=== PATIENT | female | born 1955 | race Caucasian/White ===

== ENCOUNTER 2021-02-27 22:58 | Inpatient (IN) | payer OTHER, MEDICAID ==
[~2021-02-27] VITALS: Ht 167.6 cm; Wt 82.1 kg
[2021-02-27 23:10] VITALS: BP 86/64
[2021-02-28 04:48] VITALS: BP 109/63
--- NOTE | 2021-02-28 05:46 | NUR ---
Pt admitted to unit at 0515 this shift via w/c from ED. Pt calm et cooperative with procedure. Orders obtained from MAINFRAME SYSTEMS ADMINISTRATOR distribution analyst for admission et medications. Hospitalist MAINFRAME SYSTEMS ADMINISTRATOR distribution analyst notified of admission to unit along with diagnosis. Ambulation not observed but pt able to stand et transfer from w/c to bed without difficulty. Full ROM performed without difficulty. VSWNL. Brief health assessment performed without any abnormalities noted at present time. Pt signed all consent forms et fall contract. Pt given admission packet et educated on process of admission to unit as she is requesting Immodium be given for unobserved diarrhea. Perseverating on the medication even after being told by two nurses the current course of action needed prior to her being able to receive any medication. Currently resting in bed with eyes open. Will continue to monitor per unit protocol.
[2021-02-28 05:57] LABS: CHOLESTEROL 218 mg/dL (<200); HDL CHOLESTEROL 50 mg/dL (>40); TC:HDL 4.4 Ratio (Not establshd); TRIGLYCERIDE 534 mg/dL (<150); VLDL 107 mg/dL (<40)
[2021-02-28 05:59] LABS: SERUM ASSESSMENT Clear
[2021-02-28 06:26] VITALS: BP 116/85
[2021-02-28 09:34] VITALS: BP 77/61
[2021-02-28 10:17] VITALS: BP 132/74
--- NOTE | 2021-02-28 11:07 | NUR ---
02-28-2021--7949--Went to see new patient to gather information to complete the psychosocial assessment. Notes from Has state her children have guardianship over her but they are trying to get out of it. Patient has a hx of bipolar affective d/o but was admitted this time for unspecified psychosis, Patient reports she is on [place] and she has a hx of thyroid cancer. Patient has COPD but coontinus to smoke and vape. Patient reports she had "behaviors" at [facility] due to her frustration. "Not treating me like they should and not listening to me". Patient was born and raised in [place], [place]. She was the youngest and only girl. Had the opportunity to observe her anxious reactions to the quality assurance qa lab analyst who came im to take her blood. She made herself escalate even when he was only putting on the tourniqet. Her reactions to having blood drawn were very dramatized and exceeded what was happening to her.Patient recently moved into a low income housing apartment. She reports she pays only 120.00 a month. She lives on disability. She has a psychiatrist who prescribes her meds but she reports she doesn't have a therapist, or a senior case manager. 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 She states she uses the bus [employer] and it costs her only 2.00 a trip.
--- NOTE | 2021-02-28 12:16 | NUR ---
RESUMMMED CARE FROM OVERNIGHT SHIFT THIS AM, PATIENT IN ROOM YELLING OUT. I WENT TO PATIENTS ROOM AND ASKED HER TO NOT YELL OUT WE ARE DOING SHIFT CHANGE. I TOLD PATIENT I WILL BE IN TO ASSESS HER WHEN REPORT IS FINISHED. PATIENT ALERT RIENTED TIMES 3 PATIENT APOLOGIZED FOR YELLING AND BEING RUDE. PATIENT DENIES SI/HI/AH/VH AT PRESENT. PATIENT STATES HER ANXIETY IS A 8 AND DEPRESSION AN 8. LAB HAD DIFFICULTY TRYING TO GET BLOOD PATIENT STATES SHE WILL WAIT UNTIL TOMMOROW FOR LABS. PATIENT ENCOURAGE TO DRINL MORE WATER AND FLUIDS. PATIENTS ABDOMEN SOFT BOWEL SOUNDS PRESENT PATIENTS LUNGS CLEAR. I ASKED PATIENT TO COME OUT FOR GROUPS SHE STATES SHE IS SHY BE SHE DID ATTEND GROUPS. WILL CONTINUE TO MONITOR PATIENT FOR SAFETY AND BEHAVIORS.
--- NOTE | 2021-02-28 14:56 | NUR ---
02-28-2021--1400--Call to patient's daughter, Valentin Wynne ( ). Patient was very happy to talk to her. Patient got the number for her brother here in town. His name is Rupert and his phone number is ([phone]). Someone came to give patient a breathing treatment and she had to hang up the phone. When patient had gone for her breathing treatment I called her daughter back. Daughter stated "the mental health stuff started a few years ago." She stated her mother did a lot of drugs when they were kids. About five years ago she got an apartment in [place]. Daughter states she started calling 911 all the time. Daughter states patient was "overtaking" konrad. She went to a hospital in [facility] and then to [place]. At that point the kids became her guardian. She went to [place] to live in an AL facility. (It was very dirty and she stopped taking her meds). She got kicked out of the AL about one month ago. On February 15 she moved into an apartment that she got on her own. She had an doctor's appointment and was very rude and abusive to the nurses. They sent he to [facility] where her 02 Sat was in the 80's. She had behaviors at the hospital and she was sent here. (Had she not been sent here she would have DC'd back to her apartment with 02 and will likely have to have it when she returns to her residence). Daughter and son of the patient are afraid she shouldn't be living alone. They are also trying to get out of being the guardians because she "gets so upset and angry with them". I attempted to talk to her about her mother's anger and if they were doing the right thing for her they needed to accept the anger. Family meeting set up for 1300 on 03/01. I talked to patient after her breathong treatment was done about filling out a DPOA paper appointing her son, Elvis and daughter Valentin as agents. She was agreeable. I also asked her daughter to send us a copy of the guardianship papers and she said she would e-mail them to me. Administered the SLUMS and the score was 3/30. Patient was angry about not beoing able to have pop and having to drink water. (The microbiological lab technician was unable to take blood this AM when needed.)
[2021-02-28 18:30] LABS: ALBUMIN 3.1 g/dL (3.4-5.0); ANION GAP 9 mmol/L (7-16); BUN 28 mg/dL (7-18); CHLORIDE 105 mmol/L (98-107); CO2 22 mmol/L (21-32); CREATININE 0.9 mg/dL (0.6-1.0); DIRECT BILIRUBIN < 0.1 mg/dL (<0.1-0.2); GLUCOSE 134 mg/dL (74-106); POTASSIUM 4.8 mmol/L (3.5-5.1); SGOT 20 U/L (15-37); SGPT 22 U/L (14-59); SODIUM 136 mmol/L (136-145); TOTAL BILIRUBIN 0.3 mg/dL (0.2-1.0); TOTAL PROTEIN 6.7 g/dL (6.4-8.2)
[2021-02-28 19:40] VITALS: BP 81/48
[2021-02-28 19:54] VITALS: BP 81/48
--- NOTE | 2021-03-01 00:10 | NUR ---
02/28/21 @ 1900, seated on the couch in front of TV at start of shift. A&Ox2 oriented to self and knows that is in a hospital, cannot name hospital. HRRR, Lungs CTA but diminished. ABD is round and soft x4Q. Denies pain, reports Anxiety and Depression that she rates as a 8/10. Denies SI/HI and AH/VH. Refused to allow lab draw to be taken, having only allowed half of the lab tubes to be drawn. BM reported on 02/27. Retired to bed @ HS, bed in low position. Will continue to monitor for safety and comfort.
[2021-03-01 04:06] LABS: GLYCOHEMOGLOBIN (HGB A1C) 5.8 % (4.8-5.6)
[2021-03-01 05:38] LABS: BASOPHILS 0.5 % (0.0-2.0); EOSINOPHILS 3.7 % (0.0-3.0); LYMPHOCYTES 11.2 % (24.0-44.0); MCH 26.3 pg (26.0-34.0); MCHC 30.4 g/dL (28.0-37.0); MCV 86.4 fL (80.0-100.0); MONOCYTES 7.5 % (1.0-8.0); PLATELET COUNT 314 thou/uL (150-400); POLYS 77.1 % (36.0-66.0); RBC 4.17 mil/uL (4.20-5.00); RDW 15.7 % (10.5-14.5); WBC 14.3 thou/uL (4.0-11.0)
--- NOTE | 2021-03-01 07:23 | NUR ---
03-01-2021--9483--Patient was in the day room. I sat down across from her and asked how her night had been. She stated good and she reported she got to talk to her brother last night to let him know she was here. I inquired if she had thought any more about signing the DPOA paper. (I still have not received the guardianship paper work from her daughter.) Patient stated she didn't think it was nessary. "I'm only 65". I re-explained the positive aspects of having this paperwork and told her that if she changed her mind she could let me know.
--- NOTE | 2021-03-01 08:54 | NUR ---
03-01-2021--0855--Patient's daughter called me and stated the e-mail would not go through. I inquired if she had access to a fax machine and she stated yes, her could fax it from work. She also stated her brother wanted to be included in the family meeting this date and I told her that would be great we could do a three way call. Waitng for fax to come with guardianship paperwork.
--- NOTE | 2021-03-01 10:27 | NUR ---
Assess due to new admit to [facility]. No reported wt changes and appetite is 60-80% of meals, no diet restrictions. BMI 29.3. Chol 218 and triglycerides 534 significantly elevated and pt is on lipitor. Presents low nutrition risk
[2021-03-01 13:00] VITALS: BP 107/65
[2021-03-01 13:35] VITALS: BP 107/65
--- NOTE | 2021-03-01 14:19 | NUR ---
03-01-2021--1300--Family meeting scheduled this date with patient's guardians who are her children Elvis and Valentin. The doctor explained to the guardians how patient came to be here. They in turn explained what hey have dealt with re: patient's care. Patient came into my office towards the end of the call to talk to her children and they told her they thought she should go to a long-term. Patient was very angry and started blaming the doctor and myself. She attempted to make her kids feel guilty about her losing "my beautiful apartment" ([facility]--120.00 a month with all utilities paid as per patient report.) The doctor said he would be keeping her over the [place] holiday. (Observation: When patient becomes angry she has tunnel vision about what ever the problem is and cannot listen to reason or explanations and she starts hyperverbalizing re: what she "thinks" is the problem or enemy.) I will start looking for facilities around [place] or [place] where her children live.
--- NOTE | 2021-03-01 17:08 | NUR ---
Evie was alert and oriented to person, place, and situation but disoriented to time; she knew that it was February but did not know the year. She initially presented as anxious, restless, and demanding this morning and was noted often talking to herself in her room but once this RN spoke to pt and offered emotional support and she felt as though her needs were being met, pt was able to calm down. She expressed, "I know I'm a difficult person to deal with and I wish I wasn't that way". She was medication compliant, without difficulty, and remained out of her room, in the dayroom for the majority of the shift. She participated in groups and appeared calm and cooperative throughout the day. Although, this afternoon pt had an episode where she was very upset after meeting with SW and being informed that she would be placed in a facility. She was noted by this RN raising her voice to SW and Dr. Lopez, she was redirected to her room where this RN allowed her to voice her frustrations and at the end of the conversation she voiced optimism regarding placement despite her disappointment as she expressed "I really loved that apartment and considered myself gus". 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 She recieved a dose this morning and Dr. Lopez adjusted the frequency so pt may receive q4 hours PRN. Pt received a second dose at lunch per pt request. Pt denied other physicla symptoms this shift but did endorse anxiety and recieved xanax PRN twice this shift per MAY, with effectiveness. Pt denied SI/HI/MCKAY this shift but did endorse "feeling depressed". Pt is currently sitting clamly watching TV in the dayroom; will continue to monitor.
[2021-03-01 19:40] VITALS: BP 119/45
--- NOTE | 2021-03-01 20:04 | NUR ---
03/01/21 1900, IN THE DAY ROOM UNSTEADY GAIT, BUT REFUSES TO USE WALKER. HRRR, LUNGS CTA, ABD N X 4Q. ASKS FOR VANDANAX, REMINDED THAT SHE WILL NOT BE ABLE TO TAKE IT UNTIL 0200, ACKNOWLEDGES REMEMBERING THIS TIME FRAME. HRRR, LUNGS CTA BUT DIMINISHED, ABD N X 4Q.
[2021-03-01 20:20] VITALS: BP 119/45
--- NOTE | 2021-03-02 08:52 | NUR ---
03-02-2021--2956--Called facilities to get fax numbers. Faxed referral packet to: [facility] (patient requested) [facility]--[facility]--[facility] Will check on referrals later this afternoon
[2021-03-02 10:36] VITALS: BP 110/52
--- NOTE | 2021-03-02 12:51 | NUR ---
Alert and orientated X4. Upset about conversation she overheard at nursing station by shop firer/fireman and physician discussion symptoms. Calmed down after talking with her. States she has a headache 8/ and is anxious 8/10. Resolved with Zanax and tylenol. Denies SI/HI. Breath sounds clear. Reg HR auscultated. Color pink with brisk capillary refill and palpable peripheral pulses. Yellow urine and moderate stool per toilet. Active bowel sounds over soft, rounded abdomen. Ambulates with abnormal but steady gait. Participating in groups and interacting with peers.
[2021-03-02 19:30] VITALS: BP 98/61
[2021-03-02 20:15] VITALS: BP 98/61
--- NOTE | 2021-03-02 21:50 | NUR ---
ASSUMED CARE 03/02/21 @ 1900, IN THE DAY ROOM, SEATED ON THE COUCH, WATCHING TV AND INTERACTING APROPRIATELY WITH FEMALE PEERS. DENIES SI/HI RATES ANXIETY 4/10, DEPRESSION AT 3/10 AND DENIES HALLUCINATIONS. A&OX3 CANNOT REPORT HOSPITAL NAME, IS ABLE TO NAME THE PRESIDENT AND DATE. REQUESTS RACHEL, PROVIDED WITH HS MEDS. CALM AND COOPERATIVE WITH CARE. MOOD STABLE AND RETIRED TO BED @ HS. WILL CONTINUE TO MONITOR FOR SAFETY AND COMFORT PER UNIT PROTOCOL.
--- NOTE | 2021-03-03 10:55 | NUR ---
03-03-2021--1045--Call to [facility] in the [place] area that I sent referrals to: [facility]--yelena call me back tomorrow [facility]--No--waiting list of 20 people [facility]--Left messsage with admissions to call me back [facility]--No female beds Will start calling and sending referral packets to other [facility] around [place]
[2021-03-03 11:00] VITALS: BP 110/54
--- NOTE | 2021-03-03 11:54 | NUR ---
03-03-2021--6278--Attended team meeting for patient this date. Patiednt has been verbally and physically agressive and threatenng to staff. Attempting to find a placement for patient. (See note for earlier this AM).
--- NOTE | 2021-03-03 12:53 | NUR ---
03-03-2021--1245--Call from [facility] stating they were on hold for any admissions due to not enough staff. She stayted they have a pretty long waiting list and they could put her on it. This is not a good option at this time. Printed out lists for medicaid homes around [place], and in [facility]. Will begin calling for fax numbers.
--- NOTE | 2021-03-03 13:36 | NUR ---
PATIENT HAS BEEN UP, AND OUT ON THE UNIT, AMBULATE WITH SLOW STEADY GAIT. PATIENT TOOK ALL MEDICATION WHOLE WITHOUT DIFFICULTY, SHE IS EATING MEALS, AND DRINKING FLUID WELL. PATIENT PARTICIPATING IN GROUP THERAPY. PATIENT DENIES SUICIDAL/HOMICIDAL IDEATION, RATES DEPRESSION 08/20, ANXIETY 11/20, DENIES HAVING PHYSICAL PAIN. PATIENT WAS VERY ANXIOUS THIS MORNING WANTING HAVE HER XANAX, SAME GIVEN, WITH POSITIVE EFFECT. AFFECT IS ANXIOUS, MOOD DEPRESSED. NO SIGN OF ACUTE DISTRESS NOTED AT THIS TIME, WILL MOITOR FOR SAFETY.
[2021-03-03 19:18] VITALS: BP 133/76
[2021-03-03 19:40] VITALS: BP 133/76
--- NOTE | 2021-03-04 03:42 | NUR ---
PATIENT CARE WAS RESUMED AT 1900. SHE IS ALERT AND ORIENTED. ABLE TO VERBALIZE HER NEEDS, SHE AMBULATES AND SHE IS CONTINENT OF BOWEL AND BLADDER.SHE WAS RESQUESTING FOR HER XANAX AND WAS VERY ANXIOUS AT THE TIME. SHE DENIES ANY SI/VH/HI BUT C/O PAINS TO SHOULDERS.PRN TYLENOL GIVEN WITH SOME GOOD EFFECT.SHE TOOK HER MEDS WHOLE.SHE CONTINUES TO GO TO OTHER NURSES ASKING FOR XANAX. LUNGS ARE CLEAR BS ACTIVE X4 QUADS. BED IS LOW AND LOCKED.STAFF PROVIDED A STANDBY ASSIST WITH TRANSFER AND TOILETING.
[2021-03-04 10:45] VITALS: BP 123/81
--- NOTE | 2021-03-04 16:25 | NUR ---
Alert and orientated X3. Calm and cooperative, compliant with meds. Denies SI/HI. Requesting loperamide and tylenol, given with good results. Breath sounds clear. Reg HR auscultated. Color pink with brisk capillary refill and palpable peripheral pulses. Independent with voiding. Smear of brown stool on brief. Active bowel sounds over large abdomen. Ambulates with irregular, unsteady gait. Currently resting in day room without s/o distress.
[2021-03-04 19:26] VITALS: BP 132/74
[2021-03-04 19:45] VITALS: BP 132/74
--- NOTE | 2021-03-05 02:45 | NUR ---
PATIENT CARE WAS RESUMED AT 1900. SHE WAS RELAXING ON THE COUCH AND SOCIALIZING WITH OTHER PATINETS. SHE IS ALERT AND ORIENT, LUNGS ARE CLEAR, BS ACTIVE X4 QUADS. SHE AMBULATES AND VERBALISES HER NEEDS. TOOK HER MEDS WHOLE. SHE WANT SEROQUEL FOR AGGITATION AND SHE IS CONTINENT OF BOWEL AND BLADDER.BREATHING TREATMENT WAS GIVEN AND SHE DENIES AVH/SI/HI. BED IS LOW AND LOCKED.
[2021-03-05 09:41] VITALS: BP 106/77
--- NOTE | 2021-03-05 17:14 | NUR ---
Needy this AM crying out for help with putting on her brief and pants. Alert and orientated X 3. Denies SI/HI. Requesting tylenol for MCKAY and quetiapine for anxiety with good results. Breath sounds clear. Reg HR auscultated. Color pink with brisk capillary refill and palpable peripheral pulses. Active bowel sounds over large, rounded firm abdomen. Independent with voiding, yellow urine per toilet. Ambulates with irregular, steady gait. Currently eating dinner with peers without s/o distress.
[2021-03-05 19:16] VITALS: BP 149/124
--- NOTE | 2021-03-06 04:27 | NUR ---
03-05-21 CARE TRANSFERRED 1899 OBSERVED PT SITTING IN DAY ROOM ON COUCH. PT AAOX4, VSS, RR EVEN AND NONLABORED ON RA; LUNGS CLEAR/DIMINISHED, HT RR, ABD SOFT AND ACTIVE. PT DENIES SI/HI AND PAIN. PT HAS UE TREMORS, PRESENTS ANXIOUS AND RESTLESS. PT NEEDY OFTEN ASKING FOR THE SAME QUESTION MULTI TIMES, THEN BECOMING ANGRY IF NOT GETTING WHAT SHE WANTS. LATER OBSERVED PT HAVING DIFFICULTIES GETTING HER BRIEF AND PANTS ON. ASSISTANCE GIVEN, WITH TECHNIQUE TO HELP WITH ADL'S. PT ACKNOWLEDGED EDUCATION WITH UNDERSTANDING AND DEMSTRATION WITH PANTS. PT WILL CONTINUE TO BE MONITOR PER [facility] PROTOCOL.
[2021-03-06 09:09] VITALS: BP 142/93
[2021-03-06 10:23] VITALS: BP 142/93
--- NOTE | 2021-03-06 11:38 | NUR ---
RESUMMED CARE FROM OVERNIGHT SHIFT THIS AM, PATIENT ALERT ORIENTED TIMES 4. PATIENT DENIES SI/HI/AH/VH AT PRESENT, PATIENT ATE BREAKFAST TOOK MEDICATION WITHOUT INCIDENCE. PATIENT DENIES DEPRESSION PATIENT STATES HER ANXIETY IS A 7, PATIENT GIVEN SEROQUEL 50 MG AT 11:00. PATIENTS ABDOMEN SOFT BOWEL SOUNDS PRESENT. PATIENTS LUNGS CLEAR PATIENT PARTICIPATED IN ALL GROUPS. WILL CONTINUE TO MONITOR PATIENT FOR SAFETY AND BEHAVIORS.
[2021-03-06 19:05] VITALS: BP 118/85
[2021-03-06 20:20] VITALS: BP 118/85
--- NOTE | 2021-03-07 04:43 | NUR ---
PATIENT WITH C/0 HEADACHE. TYLENOL 650MG PO GIVEN TO PATIENT BY JEREMIAS BELLE. PATIENT WENT TO LAY BACK DOWN ON COUCH IN DINING ROOM AND IS SLEEPING AT THIS TIME.
[2021-03-07 09:38] VITALS: BP 134/68
[2021-03-07 10:22] VITALS: BP 134/68
--- NOTE | 2021-03-07 15:37 | NUR ---
Evie was alert and oriented x4 this shift. She presented as anxious but was calm and cooperative with staff. She was able to express her needs calmly and appropriately this shift. She appeared SOB at times but lung sounds were clear/diminished. She voiced c/o of a MCKAY and received PRN tylenol with effectiveness. She participated in groups and remained in the dayroom throughout the day. She was social with peers and medication compliant without difficulty. Pt denied SI/HI/MCKAY. Will continue to monitor.
[2021-03-07 19:04] VITALS: BP 138/81
[2021-03-07 19:45] VITALS: BP 138/81
--- NOTE | 2021-03-08 03:21 | NUR ---
PATIENT CARE WAS RESUMED AT 1900. SHE WAS IN THE DININIG AREA SITTING ON THE COUCH WITH OTHER PATIENT IS CALM AND COOPERATIVE WITH CARE. SHE IS CONTININET OF BOWEL AND BLADDER. DENIED SI/AVH/HI. C/O GENERALIZED PAINS AND REQUESTED FOR PRN SEROQUEL FOR ANXIETY. MEDS ARE GIVEN WITH GOOD EFFECT AND SHE SWALLOWED MEDS WHOLE. BS ACTIVE X4 QUAD, ABD SOFT AND NONOE TENDER. SHE AMBLATES AND ABLE TO VERBALIZE HER PAINS. BED IS LOW, LOCKED AND ALARMED.Q12 MINUTES CHECKS ONGOING, CONTINUE CARE
--- NOTE | 2021-03-08 08:14 | NUR ---
03-08-2021--0800--Fax4ed [id number] packet to: [facility] Will attempt calls to these facilities this afternoon.
--- NOTE | 2021-03-08 08:16 | NUR ---
Nutrition follow up: Pt noted stable with variable po intakes that avg 75% across all meals. Weight stable. On mirtazapine, statin, protonix. No new labs to assess. Regular diet with no c/o chewing/swallowing issues at this time. Remains low nutrition risk.
[2021-03-08 09:12] VITALS: BP 131/69; BP 134/68
[2021-03-08 10:30] VITALS: BP 131/69
--- NOTE | 2021-03-08 12:06 | NUR ---
03-08-2021--0945--Treatment team attended his date for patient. Sent out additional referral paclkets thi date. See list in last SW note. DC to a usp or her past home. Doctor and I will do a family meeing today.
--- NOTE | 2021-03-08 14:54 | NUR ---
Evie was alert and oriented x4 this shift. She presents as anxious with slight tremors which is not abnormal for pt. She expressed that her mood is "medium" and rated her anxiety 10/10 and depression 8/10; 10 being the worst. She denied SI/HI/MCKAY and remained safe while on the unit. She was in the dayroom for the majority of the shift, participated in groups, and was social with peers. She was medication and meal compliant without difficulty. She received tylenol for c/o a MCKAY and seroquel PRN for c/o anxiety. Pt's scheduled zyprexa was D/C'd and pt changed to seroquel 50mg TID, first dose given this afternoon. Pt did not voice any other physical complaints this shift; will continue to monitor.
[2021-03-08 20:07] VITALS: BP 137/83
[2021-03-08 22:46] VITALS: BP 137/83
--- NOTE | 2021-03-09 02:48 | NUR ---
PATIENT CARE WAS RESUMED AT 1900. SHE IS AWAKE SITTING ON THE COUCH IN THE DININIG ROOM. SHE IS ABLE TO VERBALISE HER NEEDS. SHE ASKED THE NURSE TO GIVE HER SCHEDULED MEDICATION IMMEDIATELY.SHE DENIES ANY SI/AVH/HI. SHE IS CONTINENT OF BOWEL AND BLADDER. LUNGS ARE DIMINISHED AT THE BASES. SHE AMBULATES. [id number] CHECHES ARE ONGOING. BED IS LOW AND LOCKED. CONTINUE CARE
--- NOTE | 2021-03-09 11:52 | NUR ---
Alert and orientated X4. Fixated on meds wanting multiple PRNs. Expressing sadness that 4 peers are discharging today. Toenails and fingernails clipped per her request. Denies SI/HI. Fine tremor present. Ambulates with slow, steady, irregular gait. Breath sounds clear. Reg HR auscultated. Color pink with brisk capillary refill and palpable peripheral pulses. Independent with voiding. Requesting Imodium for "diarrhea". When assessed, stool was small amts brown formed stool. Education provided. Active bowel sounds over large, firm abdomen. Currently eating lunch with peers.
[2021-03-09 13:09] VITALS: BP 112/60
[2021-03-09 19:16] VITALS: BP 112/64
[2021-03-09 19:45] VITALS: BP 112/64
--- NOTE | 2021-03-10 03:26 | NUR ---
PATIENT CARE WAS RESUMED AT 1900. SHE IS ALERT AND ORIENTED AND SHE AMBULATES. ABLE TO VERBALIZE SOME PAINS. LUNGS ARE CLEAR BS ACTIVE X4 QUADS. SHE FELL FROM THE PREVIOUS SHIFT AND SHE DENIED ANY PAINS FROM [facility] BUT REQUESTED FOR TYLENOL FOR PAIN. NURSE GAVE IBUPROFEN TYLENOL COULD NOT BE GIVEN AT THIS TIME DUE TO CLOSENESS TO PREVIOUS ADMINSTRATION.SHE IS CONTINENT OF BOWEL AND BLADDER. SHE TOOK HER MEDS WHOLE AND CONTINUES TO ASK FOR WHEN HER NEXT PAIN MED IS DUE.PATIENT CONTINUES TO SLEEP ON THE COUCH AND REFUSING TO GO BED IN HER ROOM WANTING TO GET TYLENOL FOR A BARGAIN TO GO TO BED. SHE FINALLY WENT TO BED AND SLEPT THROUGH TILL THIS TIME.SHE HAD HER BREATHING TREATMENT AND NO SOA NOTED. BED IS LOW, LOCKED, ALARMED AND SHE WEARS A NONE SKID SOCKS. [id number] CHECKS ONGOING , CONTINUE CARE SOCKS. [id number] ROUNDS ARE ONGOING CONTINUE CARE
[2021-03-10 08:43] VITALS: BP 135/57
--- NOTE | 2021-03-10 10:43 | NUR ---
PATIENT HAS BEEN UP, AND OUT ON THE UNIT, PARTICIPATES IN GROUP THERAPY. PATIENT AMBULATE WITH SLIGHTLY UNSTEADY GAIT. PATIENT TOOK ALL MEDICATION WHOLE WITOUT DIFFICULTY. SHE IS EATING MEALS,AND DRINKING FLUID WELL. PATIENT DENIES SUICIDAL/HOMICIDAL IDEATION, SHE RATES DEPRESSION 4/10, FOR ANXIETY, SHE STATES "I HAVE ANXIETY ALL THE TIME". PATIENT RATES GENERALIZED PAIN 4/10, PRN IBUPROFEN GIVEN WITH PARTIAL EFFECT. PATIENT HAS BEEN CALM, COOPERATIVE WITH CARE. PATIENT ENCOURAGED TO BE CAREFUL WITH AMBULATION. FINE TREMORS NOTED TO MICH UPPER ARM. AFFECT IS ANXIOUS, MOOD IS CALM/EUTHYMIC. NO SIGN OF ACUTE DISTRESS NOED AT THIS TIME, WILL MONITOR FOR SAFETY.
--- NOTE | 2021-03-10 12:08 | NUR ---
03-10-2021--8321--Call to patient's daughter to advise her we may have found a NH in [place]. She is okay with this. She needs us to call her back at 1500 so her brother can also be on the phone. Call to [facility] where they gave me a new number as they don't take medicaid. This is a [facility] facility in [facility] and admissions ([facility]) is waiting for info to be faxed. Faxed info. Will call them back in 20 minutes.
--- NOTE | 2021-03-10 12:29 | NUR ---
03-10-2021--1230--Call to [facility] to [facility] to deterone of they would accept the patient. Not in. Message left for Priscilla to call me back. ([facility]iscilla's number is [phone] and [facility] fax is [phone]).
--- NOTE | 2021-03-10 12:32 | NUR ---
03-10-2021--6935--Attended team meeting for patient this date. Still looking for a placement.
[2021-03-10 19:32] VITALS: BP 106/56
[2021-03-10 20:50] VITALS: BP 106/56
--- NOTE | 2021-03-11 05:13 | NUR ---
PATIENT CARE WAS RESUMED AT 1900. SHE IS AWAKE SITTING IN THE COUCH AT THE DININIG AREA. SHE AMBUALATES, CONTINIET OF BOEWL AND BLADDER.ABLE TO VERBALIZE NEEDS. SHE IS COMPLAINED OF NOT HAVING TELEVISION IN HER ROOM TO INDUCE HER SLEEP. SHE TOOK HER MEDS WHOLE AND PRN PAIN MED WAS GIVEN PER ORDER WITH SOME GOOG EFFECT. PATIENT WANT TO SLEEP ON THE COUCH AND SHE CONTINUES TO ASK WHAN HER NEXT PAIN MED IS DUE. PATIENT WENT TO BED AND SHE SLEPT GOOD.BED IS LOW, LOCKED,AND LARMED. YELLOW TOP AND SOCKS ARE ON. SHE DENIES ANY CONCERN. CONTINUE TO MONITOR
--- NOTE | 2021-03-11 08:15 | NUR ---
03-11-2021--4384--Call to Priscilla at [facility] ([phone]) to determine if they had accepted or denied patient. Not in message left with my phone number for return call.
--- NOTE | 2021-03-11 08:52 | NUR ---
03-11-2021--799--Call to [facility] to determine if they accepted or denied. [facility] contacted: [facility]--denied [facility]--waiting for a call back--message left [facility]--denied [facility]--waiting on a call back message left [facility]--called, not in--will call back [facility]--Admissions--Jd Chandler--notin--msg left to call back Srhuthi Chowdhury--didn't receive--resent today [facility]--Called--transferred to nursing--msg left [facility]--msg left to call back Grecia Morales ([facility]) will look at and call back [facility]--No answer [facility]--no answer
--- NOTE | 2021-03-11 09:00 | NUR ---
03-11-2021--09--Virgilio guillen--private pay [facility]--declined [facility]--([phone]) will call back Funmi--denied Will attempt call back on 03-13-2021
[2021-03-11 09:04] VITALS: BP 106/74
[2021-03-11 10:08] VITALS: BP 106/74
--- NOTE | 2021-03-11 12:06 | NUR ---
Patient care resummed; patient up and in dayroom relaxing; A&O*4; Lung sounds clear, unlabored, diminished; Abdomen soft, nondistended with bowel sounds present*4; Denies SI/HI/AVH; Pain to the back area, states from fall she had 2 days ago; managed with PRN Tylenol; V/S present Hypotensive although trend to patient baseline; O2 at 90% this morning-patient denies SOB; Patient states she has had *3BM of loose stool today; Medication given; Fall precautions are in place; Medication/Meal compliant; Will continue to monitior for safety and behaviors;
--- NOTE | 2021-03-11 14:26 | NUR ---
[facility] Ign[facility] declined Pt
[2021-03-11 18:04] LABS: URINE BILIRUBIN NEGATIVE (Negative); URINE BLOOD TRACE (Negative); URINE CLARITY CLEAR; URINE COLOR YELLOW; URINE GLUCOSE-RANDOM* NEGATIVE (Negative); URINE KETONES NEGATIVE (Negative); URINE LEUKOCYTES-REFLEX NEGATIVE (Negative); URINE NITRITE-REFLEX NEGATIVE (Negative); URINE PROTEIN (DIPSTICK) NEGATIVE (Negative); URINE SPECIFIC GRAVITY 1.015 (1.005-1.035); URINE UROBILINOGEN 0.2 E.U./dl (0.2-1.0)
[2021-03-11 19:20] VITALS: BP 109/75
[2021-03-11 19:27] VITALS: BP 109/75
--- NOTE | 2021-03-12 05:18 | NUR ---
PATIENT CARE WAS RESUMED AT 1900. SHE WAS SITTING IN THE DINING AREA. SHE IS ALERT AND ORIENTED. LUNGS ARE CLEAR, BS ACTIVE X4 QUADS. SHE IS CONTININET OF BOWEL AND BLADDER. SHE AMBULATES AND ABLE TO VERBALIZE NEEDS. SHE IS ON FALL PRECAUTION. YELLOW TOP AND SOCKS ON. SHE TOOK HER MEDS WHOLE. BED IS LOW, LOCKED AND ALARMED. Q12 MINTES CHECKS ONGOING, CONTINUE CARE
[2021-03-12 07:52] LABS: ABSOLUTE NEUTROPHILS 5.2 thou/uL (1.4-8.2); EOSINOPHILS 6.7 % (0.0-3.0); HEMATOCRIT 33.8 % (37.0-47.0); HEMOGLOBIN 10.4 gm/dL (12.0-15.0); MCH 26.2 pg (26.0-34.0); MCHC 30.8 g/dL (28.0-37.0); MCV 85.2 fL (80.0-100.0); MONOCYTES 7.2 % (1.0-8.0); PLATELET COUNT 327 thou/uL (150-400); POLYS 73.1 % (36.0-66.0); RBC 3.96 mil/uL (4.20-5.00); RDW 16.3 % (10.5-14.5); WBC 7.2 thou/uL (4.0-11.0)
[2021-03-12 08:10] LABS: CALCIUM 9.5 mg/dL (8.5-10.1); CREATININE 0.9 mg/dL (0.6-1.0); POTASSIUM 4.4 mmol/L (3.5-5.1)
[2021-03-12 09:25] VITALS: BP 131/69
[2021-03-12 11:14] VITALS: BP 131/69
--- NOTE | 2021-03-12 15:45 | NUR ---
Patient care resummed; patient located up in the dayroom, sitting on the ice hockey coach watching TV; Denies SI/HI/AVH; States shes is depressed because she has not been able to meet her new grandson yet; Says she has some anxiety about how much longer she will be here; Patient reports pain in her shoulder area/upper back this morning as a 6/10; ORDNANCE HANDLER offered Ibprofen and pt. stated it doesn't work and she wanted Tylenol; ORDNANCE HANDLER informed patient she just had it at 0600 and that she had to wait untill noon for the next dose; Patient would continue to approach nurses station every hour asking "I need more Tylenol;" Patient was given the next dose at 1200 of 650mg; patient was then later was given scheduled 1400 medications and ORDNANCE HANDLER asked again how her pain was; Patient stated "I feel great, that Tylenol really helped me." After ORDNANCE HANDLER walked away to assess another patient, this patient went to another nurse stating "I am in so much pain, I need my Tylenol." ORDNANCE HANDLER overheared situation and informed Fellow Nurse she recieved 650mg at 1200 & a new order was placed for 1,000mg 3 times daily; which was due @1500; ORDNANCE HANDLER did not feel comfortable giving due to doses not being q6hrs apart; ORDNANCE HANDLER was informed by fellow nurse and Charge nurse to given the 1,000mg dose; Patient then stated to nurse that "I have to have it, my body won't work without it." Will continue to monitior; Fall precautions in place;
[2021-03-12 19:35] VITALS: BP 134/111
[2021-03-12 19:54] VITALS: BP 134/111
--- NOTE | 2021-03-12 20:13 | NUR ---
Assumed care on 03/12/21 @ 1900, VSS, HRRR, Lung sounds CTA bilat, ABD N x 4Q. Reports bm today with diarrhea quality. Denies SI/HI depression and anxiety. Reports wants flexaril and tylenol. Will continue to monitor for safety and comfort as per unit protocol.
--- NOTE | 2021-03-13 08:13 | NUR ---
03-13-2021--7455--Briefly spoke to client and esplained I would call some Nursing homes that I sent packets to and determined if they had read them. I also explained this being New Year's Day, many people will be off. I told her I would try them again next Monday.
[2021-03-13 08:55] VITALS: BP 109/55
[2021-03-13 09:10] VITALS: BP 109/55
--- NOTE | 2021-03-13 17:46 | NUR ---
Focused on calling children, angry that she was asked to do assessment. Resistant to parts of assessment, calling names and using profanity. Apologized for behavior about an hour later. Alert to name and place. Denies SI/HI. Breath sounds clear. Reg HR auscultated. Color pink with brisk capillary refill and palpable peripheral pulses. Independent with voiding. Active bowel sounds over large, rounded, firm abdomen. States last BM was yesterday. Currently in day room with peers. Primary nursing care done by Faith Summers LPN.
--- NOTE | 2021-03-13 23:09 | NUR ---
At onset of outboard motor inspector pt was sitting in day room watching TV and socializing with peers. This shift pt was up ad nadira, alert and oriented x3, with broad affect. Pt was compliant with vital signs and medications. Pt was mostly calm, pleasant and cooperative. Pt was irritable with a female peer for not wearing a mask, but was otherwise calm. Pt denied SI, HI and AVH. Pt stated she had a little anxiety. Fall precautions are in place. Will continue to monitor.
[2021-03-14 08:26] VITALS: BP 114/100
[2021-03-14 08:53] VITALS: BP 114/100
--- NOTE | 2021-03-14 14:33 | NUR ---
03-14-2021--1400--Faxed additonal packets to more facilities in [facility] [place]: [place]; [facility] [place]/[facility] [place] [facility] I will call tomorrow 03-15-2021 to make sure fax got through and if any accepted or declined.
--- NOTE | 2021-03-14 18:03 | NUR ---
Assumed pt care this morning from overnight shift. Pt was in activity area on couch resting. Pt presented calm and was oriented 4x. Client expressed that she was anxious to go home and that she wanted to spend time with her family. Client denied any depression at this time. Client also denied any hallucinations. Client denied any suicidal or homicidal ideation as well. Client did voice upper back pain 7/10 during this time. Scheduled tylenol given to help with this. Client asked when her flexaril would be given, and was reminded that it was scheduled for 12 pm on this shift, and for 2100 on night stocker. Client was also reminded of the next time she could take her scheduled tylenol as she frequently asks about this. Lung sounds were clear at this time though slightly diminished. Bowel sounds present. Last BM 03/14/21. No further concerns at this time.
[2021-03-14 19:49] VITALS: BP 103/91
--- NOTE | 2021-03-14 20:06 | NUR ---
Assumed care on 03/14/21 @ 1900, seated in the day room, ambulating back and forth to bedroom without device. HRRR, Lungs CTA, ABD N x 4Q. Reprots anxiety is thru the roof, reports is leaving and wants to stay in her apt, but denies knowing where she will be discharged to. Reports depression is improving. Deniesw si/hi.
[2021-03-14 20:17] VITALS: BP 103/91
[2021-03-15 08:40] VITALS: BP 129/61
[2021-03-15 08:54] VITALS: BP 103/80
--- NOTE | 2021-03-15 10:35 | NUR ---
Nutrition followup: pt remains on [facility] unit with dementia, bipolar, anxiety. Staff assists pt in ordering meals according to food preferences but does not always eat well. Pt confirms she has had reduced appetite lately. Continue to encourage ordering meals as desired, no specific food preferences voiced to RD other than she likes hamburgers which are on menu today. Average intake past 12 meals is 62%. No new weight since 03/04, Requested from ns. Prior weights stable. Pt already on mirtazapine. Pt agrees to trial one ensure daily, will offer at lunch. Continue as low nutrition risk for now.
--- NOTE | 2021-03-15 17:38 | NUR ---
Assumed pt care this morning from overnight shift. Pt was in activity area sitting in couch at this time, and presented restless. Pt was excited to be leaving to go home today and wanted to talk to grandchildren and children. Pt presented oriented 4x at this time. Pt denied depression and anxiety during this conversation, and denied any hallucinations as well. PT also denied any suicidal or homicidal ideation during this time. Pt stated moderated back pain for which she was given tylenol. Lung sounds were clear and diminished and bowel sounds were present. Last BM 03/15/21. Later during the day, client was told that she could not discharge today. Client became agitated, and was crying hysterically, stating that she would hit staff, and waving arms, shaking legs, and rocking back and forth. Client stated that she wanted an inventory of all of her things, and stated that staff had stolen from her, and stated that she would argue with staff and hit staff until they "brought back her things." Client yelled "you all are good for nothing" and continued to scream. PRN olanzapine was given at this time for agitation. No hold needed as client accepted injection. Client is currently sleeping on couch in activity area. No further concerns.
[2021-03-15 20:10] VITALS: BP 129/61
[2021-03-15 20:28] VITALS: BP 129/61
--- NOTE | 2021-03-16 02:34 | NUR ---
PATIENT WAS SLEEPING ON COUCH IN DINING ROOM WHEN I ARRIVED FOR SHIFT. SHE REFUSED HER RESPIRATORY TREATMENT AT 1900 AND WOULD NOT AWAKE FOR ASSESSMENT. SHE PUSHED ME AWAY I LISTENED TO HE LUNGS SHE SLEPT. SHE AWOKE AROUND 2100 AND WAS MAD THAT WE LET HER SLEEP SO MUCH. SHE DENIED PAIN BUT WANTED SLEEP MEDS. SHE HAD A LATE SNACK SINCE SHE WAS SLEEPING EARLIER. SHE GOT UPSET AND ANGRY WHEN SHE WAS TOLD THE TV IS TURNED OFF AT 2200 AND SHE FELT WE SHOULD KEEP IT ON SINCE SHE CAN'T SLEEP. SHE BECAME ARGUMENTATIVE AND HATEFUL AND CALLED THE [employer]MER[employer]. I TOLD HER WE DO NOT TOLERATE THAT AND SHE SAID IF THEY'RE GOING TO ACT LIKE BITCHES THEN I'M GOING TO CALL THEM THAT. SHE FINISHED EATING HER SNACK. SHE DID CALM DOWN. SHE WANTED SOMETHING FOR SLEEP 15 MINUTES AFTER HAVING HER HS MEDS WHICH INCLUDED SEROQUEL 75MG. PT GIVEN ZOFRAN 4MG TO SEE IF THIS WOULD HELP HER TO SLEEP. PATIENT REFUSED TO GO TO HER ROOM AND SLEEP IN BED AFTER ENCOURAGING HER TO DO SO AND EXPLAINING SHE IS MORE LIKELY TO SLEEP IN A QUIETER SPACE THAT IS MORE COMFORTABLE. OFFERED TO GET HER A WARM PACK FOR HER BELLY TO HELP HER RELAX. PATIENT BECAME HIGHLY ANXIOUS AND BEGAN HYPERVENTILATING AND STATING SHE CAN'T BREATHE. PATIENT WAS TAKEN TO HER ROOM AND INSTRUCTED ON SLOWING HER BREATHING AND TO STOP SAYING SHE WON'T BE ABLE TO SLEEP. EXPLAINED SHE WAS IN NO DANGER AND HER PULSE OX WAS OK AT 94. HAD PATIENT LAY DOWN IN BED AND TOLD HER I WOULD BE BACK WITH A WARM PACK. WHEN I CAME BACK SHE WAS FALLING ASLEEP. PLACED WARM PACK ON BELLY AND READ HER A DEVOTION FROM HER BOOK. PATIENT FELL ASLEEP. PATIENT HAS BEEN SLEEPING SINCE. PT DENIES SI/HI/AVH. SHE DOES ACT OUT FOR ATTENTION AT TIMES WHEN SHE DOESN'T GET WHAT SHE WANTS. IS REDIRECTABLE WITH SOME EFFORT. BED IN LOW POSITION AND BED ALARM IS ON. ROUTINE ROUNDS TO ASSESS SAFETY AND STATUS OF PATIENT.
[2021-03-16 08:30] VITALS: BP 111/86
[2021-03-16 09:36] VITALS: BP 111/86
--- NOTE | 2021-03-16 11:51 | NUR ---
PATIENT SLEPT 8.8 HOURS LAST NIGHT. SHE WAS WITH C/O OF HEADACHE AND ES TYLENOL 1000MG. PATIENT C/O OF HEADACHE 2 HOURS LATER AND IBUPROFEN 800MG PO GIVEN TO HER AND ON RECHECK SHE DID HAVE PARTIAL PAIN RELIEF FROM 9 TO A 3 OUT OF 10 PAIN LEVEL. PATIENT HAS BEEN ARGUMENTATIVE OFF AND ON WITH STAFF. SHE REFUSED HER RT'S LAST NIGHT AND THIS MORNING. LUNGS DIMINISHED AND 02 SAT RUNNING 83 TO 91. PATIENT IS CALM AND COOPERATIVE AT TIMES AND THEN SUDDENLY BECOMES ARGUMENTATIVE. DENIES SI/HI/AVH. VERY NEEDY AND WANTS ASSISTANCE WITH ALL ADL'S THAT SHE IS CAPABLE OF DOING HERSELF. KEEP ENCOURAGING PATIENT TO TRY. SHE ARGUES SHE CAN'T CHANGE HER SCRUB PANTS. FINALLY TRIES ON OWN AND DOES IT. PRAISED PATIENT. PATIENT WALKS WITH STEADY GAIT. TAKES MEDS WHOLE WITH WATER. DR Mcpherson AND NURSE SPOKE TO HER ABOUT THE NEED TO DO RT'S. SHE STATES SHE WILL START TAKING THEM. PATIENT IN ROOM FOR TIMEOUT PER DR MAURER D/T BAD BEHAVIOR IN DINING ROOM DURING LUNCH. PATIENT IS EATING IN HER ROOM AT THIS TIME AND IS CALMING DOWN.
--- NOTE | 2021-03-16 14:09 | NUR ---
03-16-2021--1200--Called facilities I faxed referrals to yesterday. No one was interested (declined because of behaviors). I called all Medical Lod[facility] in: [place]--anabel Cifuentes-- [facility] [place] I am waiting for a phone call back from one of them as they have openings.
--- NOTE | 2021-03-16 17:58 | NUR ---
TATO was able to speak with Belia at [facility] of . Belia informed they are able to accept the Pt and they were waiting on insurance authorization. Belia requested a order for SNF less than 30 days. Discharge was set for 03/17/2020 @ 1400. Pt will be transported via express transportation. TATO did inform TATO Martinez concenring the matter. The Pt's DPOA was also informed.
[2021-03-16 19:20] VITALS: BP 118/64
[2021-03-16 20:45] VITALS: BP 118/64
--- NOTE | 2021-03-16 21:58 | NUR ---
Assumed care on 03/16/21 @ 1900, A&Ox3, Cooperative with assessment and compliant with medication. Asked for and provided flexaril for pain. Reports looking forward to discharge tomorrow. Denies anxiety and reports has very small amount of depression. Denies SI/HI, Hallucinations. Retired to bed @ HS. Bed in low position, bed alarm set, will continue to monitor for safety and comfort as per unit protocol.
[2021-03-17 08:40] VITALS: BP 127/68
[2021-03-17 09:00] VITALS: BP 127/68
[2021-03-17] MEDS ORDERED: IPRAT-ALBUT 0.5-3 ML INH (12:25)
[2021-03-17] MEDS ORDERED: NICOTINE1 EAC2 TRANSDERM (12:26)
[2021-03-17] MEDS ORDERED: LIPITOR40 MG PO (12:26)
[2021-03-17] MEDS ORDERED: TYLENOL EXTRA500 MG PO (12:28)
[2021-03-17] MEDS ORDERED: ADULT LOW DOSE81 MG PO (12:28)
[2021-03-17] MEDS ORDERED: LITHIUM CARBON300 M6 PO (12:29)
[2021-03-17] MEDS ORDERED: SEROQUEL 25 MG25 M1 PO (12:29)
[2021-03-17] MEDS ORDERED: REMERON 30 MG T30 M1 PO (12:29)
[2021-03-17] MEDS ORDERED: PROTONIX40 M2 PO (12:30)
[2021-03-17] MEDS ORDERED: SYNTHROID125 MC1 PO (12:38)
[2021-03-17 13:27] VITALS: BP 127/68
[2021-03-17 19:09] VITALS: BP 95/68
--- NOTE | 2021-03-17 19:27 | NUR ---
Assumed pt care this morning from overnight shift. Client presented alert and oriented 3x, but did not seem to comprehend that she was discharging today. Client voiced that she was having anxiety at the possibility of moving, but could not state where she was moving or state anything about the process. Client denied any depression at this time. Piute assessment completed. Client denied any visual or audio hallucinations. Client denied any si/hi. Spoke to client's DPOA, Valentin, and got verbal confirmation for client's discharge and release from hospital. Verbal shift report given to client's new facility by this nurse. All client belongings were packed, client's envelope containing her money, SSI card, and drivers liscense was picked up from security and given to client in sealed envelope. Client given spare clothing from clothing closet at this time as well. Shortly before discharge, client became agitated, stating that she wanted her medication early, and that she felt like she was leaving and going to an nown place. Client was assured that she was going to a new facility, and that her medication would be given shortly before discharge. Client started yelling at staff, and therapeutic communication was used to calm down client. Medication was given at this time. Medical transport picked up client at 2:00pm. Client given discharge paperwork and personal belongings as stated above. No further concerns at this time.
--- NOTE | 2021-03-18 08:20 | D ---
[facility] [address] [place] [address] DISCHARGE SUMMARY Name: LAINA DURANT Room #: 520B-B DIS IN M.R.#: [id number] Admission: 02/28/21 Attend Phys: Gonzalo Lopez DO Discharge: 03/17/21 Date of : 57 Report #: [id number] THIS REPORT FOR: cc: FAM - No family physician/PCP FAM - No family physician/PCP Gonzalo Lopez DO ~ DATE OF SERVICE: 03/17/2021 INPATIENT PSYCHIATRIC DISCHARGE SUMMARY ATTENDING PSYCHIATRIST: Gonzalo Lopez DO RADIATION ENGINEER: Guero Villela MD DISCHARGE DIAGNOSIS: Bipolar 1 disorder, most recent episode with psychotic features, and that is improved. MEDICAL COMORBIDITIES: Include hypothyroidism, on replacement, chronic tobacco use disorder, no withdrawal symptoms. Counseled on tobaccoism. She is discharging to a retirement facility and is under guardianship, so she should not be smoking. She also has had a neck spasm, neck pain. Flexeril has been given during the admission. The patient is discharging to retirement, [facility] [place], [place]. DIET: Regular diet. ACTIVITY LEVEL: As tolerated. The patient does use a walker. She does have a gait disturbance with wide-based staggered step. The patient needs prompting for showering. She should not drive and again she is incapacitated by court order. Her guardians are her daughter, Liliya, and son, Elvis. DISCHARGE MEDICATIONS: Ipratropium albuterol sulfate nebulizer 3 mL 4 times a day, nicotine patch, she was given a 7 g transdermal patch daily to aid in cessation, which will be discontinued after a week, atorvastatin 40 mg oral at bedtime for hyperlipidemia, aspirin 81 mg oral daily for hypertension, Tylenol 1000 mg oral 3 times a day for chronic pain, mirtazapine 15 mg oral at bedtime for sleep and depression, Seroquel 75 mg oral 3 times a day for psychosis, lithium carbonate 300 mg oral twice daily for mood stabilization, pantoprazole 40 mg oral daily for GERD, levothyroxine 125 mcg oral daily at 0700 hours. LABORATORY DATA: Hematology: Hemoglobin and hematocrit 10.4 and 33.8, white count 7.2, platelet count 327. Coags: D-dimer on 03/10 was 0.32. Chemistries: Sodium 142, potassium 4.4, chloride 107, bicarbonate 29, anion gap 6, BUN 8, creatinine 0.9, estimated GFR of 63, glucose 100, and calcium 9.5. Total bilirubin 0.3, direct bilirubin less than 0.1. AST 20, ALT 22, alkaline phosphatase 101. Albumin 3.1. Lactic acid 0.9 on 02/28. Urinalysis showed trace blood. Toxicology: Qulin level 0.92 on 03/12 and the initial lithium [address] [address] DISCHARGE SUMMARY Name: LAINA DURANT Room #: 520B-B DIS IN M.R.#: [id number] Admission: 02/28/21 Attend Phys: Gonzalo Lopez DO Discharge: 03/17/21 Date of : 57 Report #: [id number] level was 1.15, so it was repeated. SARS-CoV-2 PCR not detected on 03/02/2021, 03/04/2021 and 03/11/2021. Psychiatric and medical care per receiving facility. REASON FOR ADMISSION: Back on 02/28 or so, a 65-year-old female transferred from [facility] in [place], [place] due to manic episode. The initial history was a little blurry, but as it was clarified, the patient had left an assisted living facility about a month prior, was living on her own around [place], [place], had been seeing Dr. Dread Hernandez, psychiatrist at [facility]. There was some question as to even if her psychiatrist and if she was under an [facility] Guardianship. In any event, her guardians are not comfortable with her going to live independently. She did have a fairly high SLUMS score in the 20s; however, she has a record of needing a number of nursing facility stays in recent years, and also had a long-term state hospitalization about 3 years prior. HOSPITAL COURSE: The patient improved overall. She did maintain some childish behavior at times, irritability with staff, but I think most of these are chronic issues. I reiterated this to the guardians if she is going to be under guardianship, She should be living in some kind of RCF/nursing environment and not on her own in [place]. I view the indpendent/unsupervisied livign arrangement as the main contributor to her decompensation in setting of well established Bipolar Effective Disorder. DISCHARGE PHYSICAL EXAMINATION: VITAL SIGNS: On day of discharge are as follows: Temperature 36.3, pulse 100, respirations 18, BP 127/68. GENERAL: The patient is a well-developed, unkempt, large habitus female. MENTAL STATUS EXAMINATION: A well-developed female, appearing stated age, unkempt. Attention intact. Concentration intact. Speech normal rate and tone. Thought Process: Linear and goal directed. Thought content focused on her immediate needs. Denied SI, HI. denied hopeless,ess, helplessness Denied auditory or visual type hallucinations. Mood and affect okay, constricted, congruent. Memory not formally tested. Insight and judgment limited. Fund of knowledge, no greater than average. PROGNOSIS: For this patient is guarded and will depend on the account of long-term care she gets through guardians, we will have to see to. <ELECTRONICALLY SIGNED> By: Gonzalo Lopez DO 03/18/21 0820 [id number] oGnzalo Lopez DO /nt
== END 2021-03-17 14:00 | DRG 885 ==
LOC: ER 22:58 → SBH 02-28 05:05
PROVIDERS: Emergency Medicine; Internal Medicine; Nurse Practitioner; ADMIT Psychiatry & Neurology Psychiatry; ATTEND Psychiatry & Neurology Psychiatry
DX: F31.2 Bipolar disorder, current episode manic severe with psychotic features (principal); F13.20 Sedative, hypnotic or anxiolytic dependence, uncomplicated; F03.90 Unspecified dementia, unspecified severity, without behavioral disturbance, psychotic disturbance, mood disturbance, and anxiety; Z20.822 Contact with and (suspected) exposure to COVID-19; J44.9 Chronic obstructive pulmonary disease, unspecified; C73 Malignant neoplasm of thyroid gland; E03.9 Hypothyroidism, unspecified; D64.9 Anemia, unspecified; R41.9 Unspecified symptoms and signs involving cognitive functions and awareness; F41.9 Anxiety disorder, unspecified; Z79.82 Long term (current) use of aspirin; Z79.899 Other long term (current) drug therapy; Z86.73 Personal history of transient ischemic attack (TIA), and cerebral infarction without residual deficits; Z82.3 Family history of stroke; Z82.5 Family history of asthma and other chronic lower respiratory diseases; Z81.1 Family history of alcohol abuse and dependence
CPT/HCPCS: 10880